=== PATIENT | male | born 1950 | race Caucasian/White ===

== ENCOUNTER 2020-12-10 22:06 | Emergency (ER) | payer MEDICARE ==
[~2020-12-10] VITALS: Ht 177.8 cm; Wt 76.7 kg
[2020-12-11] MEDS ORDERED: TETRACAINE 0.5% OPHTH SOLN 4ML OD ONE (01:15)
[2020-12-11 01:57] VITALS: BP 152/85
== END 2020-12-11 02:34 | disposition home or self-care (01) ==
LOC: M ED 22:06
DX: S05.11XA Contusion of eyeball and orbital tissues, right eye, initial encounter (principal); X58.XXXA Exposure to other specified factors, initial encounter; Y92.89 Other specified places as the place of occurrence of the external cause